=== PATIENT | male | born 1945 | race Caucasian/White ===

== ENCOUNTER → 2020-07-20 15:34 | Outpatient (CLI) | payer OTHER, SELFPAY ==
--- NOTE | 2020-07-20 15:37 | CT_ITS ---
STUDY: CT SCAN LOWER EXTREMITY LEFT REASON FOR EXAM: Male, 74 years old. VARUS DEFORMITY RADIATION DOSAGE (If Supplied By Facility): CTDIvol = ( 18.76 ) mGy, DLP = ( 1106.18 ) mGycm. Individualized dose optimization techniques were used for this CT.? TECHNIQUE: Multiple axial tomographic images of the left lower extremity were obtained without intravenous contrast administration. Axial and coronal reconstruction was obtained as well. COMPARISON: None. FINDINGS: Imaging of the left hip joint was performed. Small spur is seen along the acetabular rim bilaterally. No significant joint space narrowing is seen. Moderate to marked degree of joint space narrowing involving the medial compartment of the knee joint. Small subchondral geodes. Marked degree of joint space narrowing of the femoral patellar joint with large anterior femoral spur formation. There is evidence of a tiny avulsion of the tibial spine. Small joint effusion. Imaging of the ankle joint was performed. The ankle mortise is symmetrical. There is evidence of old avulsion fracture of the medial malleolus. Tiny cyst is seen along the lateral aspect of the distal tibia. CT/Extremity Lower without Contra IMPRESSION: Degenerative changes of the knee joint as described. Electronically Signed: Juma Murillo MD at 15:21 EDT , Service support ,
== END ==
PROVIDERS: Referring Provider Specialist; Visit Provider Specialist
DX: M21.162 Varus deformity, not elsewhere classified, left knee (principal)
CPT/HCPCS: 73700

== ENCOUNTER 2020-08-09 12:38 | Inpatient (IN) | payer OTHER, MEDICARE, SELFPAY ==
--- NOTE | 2020-07-20 23:13 | HP.PCM_ITS ---
History and Physical History and Physical [facility] Patient Name: Kirill Lrary : 1945 From:? NICOLE WALTERS PA-C? DATE OF SURGERY:? 08/09/2020 SCHEDULED PROCEDURE:? left total knee arthroplasty HISTORY OF PRESENT ILLNESS: Preoperative history and physical exam was performed on July 20, 2020.? This is a 74-year-old male who has had ongoing pain for a couple years.? Patient's pain has been constant and sharp.? Pain is increased with going up and down stairs and walking.? Patient has been treated by the [facility] with previous conservat hany measures.? He has difficulty with activities of daily living including shopping and leisure activities such as walking.? Difficulty getting dressed and putting on his socks and shoes.? Patient has tripped/stumbled secondary to his knee pain.? He feels unsafe climbing on stepstools.? Patient has tried conservative measures including for previous corticosteroid injections.? The first injection gave him approximately 1 year relief.? The last injection only gave him 1 month of relief.? He states the pain has been progressively been getting worse.? Pain is increased over the medial aspect of the knee.? His pain is 8/10 at worst.? He has also attempted bracing with no relief in symptoms.? Patient denies previous surgery on the left knee.? He has medical history pertinent for atrial fibrillation, hypertension, sleep apnea, gastroesophageal reflux disease.? He is currently on Coumadin secondary to the atrial fibrillation.? Denies any previous heart surgeries.? He is followed by a porcelain turner and primary [facility].? We are asking for appropriate clearances as well as stopping the Coumadin prior to surgery.? After failing conservative measures and discussing treatment options, the patient does wish to proceed with a left total knee arthroplasty. REVIEW OF SYSTEMS: ROS: Const: Denies change in appetite, fever and weight change. CV: Reports irregular heartbeat, but denies chest pain and heart murmur. Resp: Denies cough, pneumonia, shortness of breath, tuberculosis and wheezing. GI: Denies constipation, diarrhea, heartburn, nausea, rectal itching, bloody stools and vomiting. : Denies incontinence. Musculo: Reports trouble walking, but denies leg swelling, pain and weakness. Skin: Denies Raynaud's, history of shingles and tattoo. Neuro: Denies ambulatory dysfunction, dizziness, numbness/tingling and tremor. Psych: Denies anxiety, insomnia and stress. Markus/Lymph: Denies anemia, bleeding/bruising tendency and past transfusion. Reviewed, no changes. PAST MEDICAL HISTORY: Advance Care Plan: Other Directive, POA Effective Date: 06/26/2020 PMH: Medical Problems: Arthritis, Hard of Hearing, Hepatitis, Sleep Apnea, GERD, High Blood Pressure, atrial fibrillation, vitamin D deficiency, Hypercholesterolemia, Vertigo Accidents: None Surgical Hx: None Anesthesia Complications: None Assistive Devices: Glasses, Contacts, Hearing Aid Reviewed, no changes. SOCIAL HISTORY: SH: Marital: .Occupation: Retired.Work Status: Retired.Hand Dominance: Right-handed. Personal Habits:? Cigarette Use: Former Cigarette Smoker.Smokeless Tobacco: Never Used Smokeless Tobacco.E-Cigarette Use: Never used.Alcohol: Weekly use.Drug Use: Denies Use.Enjoy Exercising: Never Exercises. Reviewed, no changes. VITALS: Ht: 69 Wt: 235lb Wt k.596 BMI: 34.7 BP: 124/70 Pulse: 68 Resp: 20 T: 97.3 T: 36.3C ALLERGIES: No Known Drug Allergy? MEDICATIONS: Warfarin Sodium 5 mg 1 by mouth every day, Loratadine 10 mg 1 by mouth every day, Atorvastatin Calcium 40 mg 1 by mouth every day, Diltiazem HCL 120 mg 1po qday, Pantoprazole Sodium 20 mg 1 by mouth every day, Docusate Sodium 100 mg 2po bid, Losartan Potassium 100 mg 1 by mouth every day, Hydrochlorothiazide 12.5 mg 1po qday, Echinacea? 2po qday, [place] 3 1000 mg 1 by mouth every day, Glucosamine Chondroitin 500 Complex 500 Comp 2 by mouth twice a day, [place] 80 mg once a day, Flaxseed Oil 1000 mg 1po qday, Potassium 99 mg 1po qday, Iron 325 (65 Fe) MG 1po qday, Vitamin D3 25 mcg (1000 Ut) 2po qday PRE-OP EXAM:? General appearance:NORMAL? ? ? Other: Eyes: Conjunctivae and lids: NORMAL? Pupils: ERR Ears, Nose, Mouth, and Throat: NORMAL? Other: Inspection of lips, teeth and gums: NORMAL? ?Other: Neck: Examination of neck: no masses noted. Respiratory: Assessment of respiratory effort: NORMAL? ?Other: ?Auscultation of lungs: clear to auscultation no wheezes, rhonchi or rales. Cardiovascular:? Auscultation of heart: regular rate and rhythm, no murmurs, gallops or rubs. Exam of carotid arteries: NORMAL? ?Other: Gastrointestinal:? Exam of abdomen: soft, nontender, nondistended bowel sounds present. PHYSICAL EXAMINATION: Patient does walk with an antalgic gait.? Left knee is cool to touch without erythema or signs of infection.? He has tenderness to palpation along the medial joint line.? Patient has varus deformity with near fixed deformity on exam.? Range of motion: Lacks 10 of full extension to 110 flexion of the left knee.? Patient has significant laxity with soft endpoint on anterior drawer exam.? Sensation intact to light touch. IMAGING STUDIES: Outside x-rays show varus deformity with medial joint space narrowing, subchondral sclerosis, osteophyte formation consistent with grade 4 severe tricompartmental osteoarthritis.? Bony erosions of the medial compartment.? No lytic or blastic lesions. IMPRESSION: 1.? Severe left knee osteoarthritis 2.? Hypertension 3.? Atrial fibrillation currently on Coumadin 4.? Sleep apnea 5.? Gastroesophageal reflux disease 6.? Hypercholesterolemia 7.? Vertigo 8.? Vitamin D deficiency PLAN: I did discuss and review with the patient all treatment options including surgical versus nonsurgical options.? Patient does wish to proceed with the above-stated procedure.? Potential risks, benefits, and complications of the procedure were discussed in detail including but not limited to , infection, nerve and blood vessel damage, persistent pain, numbness, tingling, p aresthesias, blood clot, pulmonary embolism, and requirement for possible further surgery.? The patient expressed full understanding and has no further questions for the doctor.? Patient does agree to proceed with the above-stated procedure and has signed the surgery consent form. We discussed the current risks associated with COVID 19.? This does include the risk of exposure while in the hospital.? Patient was reassured local hospitals have low infection rates and are taking all necessary precautions to avoid exposure to patients.? In addition, we discussed strategies that can be used to help limit exposure including those that limit the patient's time in the hospital.? Also using strategies to limit the patient's need for continued inpatient services after being discharged from the hospital.? Patient was notified that we will need to comply with any screening or testing the hospital wishes to perform or that surgery may be delayed for any positive results. This dictation was created using voice recognition software. Phonetic and/or grammatical errors may exist. ___? I have re-examined the patient.? There are no clinical changes since date of exam. ___? See progress notes for changes. ___? Dictated on admission Date: ? ? ?Time: Signature:
[2020-08-09] VITALS (9 sets, daily range): BP systolic 140–159; BP diastolic 61–74; PULSE 65–92; RESP 14–100; TEMP 36.2–36.7; O2SAT 94–100; BMI 32.4
--- NOTE | 2020-08-09 | KNEE_PTH ---
PATIENT: TRISTA DAVIS LOC: [facility] U#:[id number] AGE/SX: 74/M ROOM: [facility] RE08/10/[address]: Dr. Luke Lacey MD : 1945 BED: 1 DIS: 08/11/2020 SPEC #: [id number] RECD: 08/09/20 14:39 STATUS: STARR WHITEBakari #: [id number] ELOY: 08/09/20 00:[address]: Luke Lacey DEPT: SURGICAL PATHOLOGY RECD BY: Jeevan Khalil ENTERED: 08/10/20 07:29 SP TYPE: TOTAL KNEE OTHR DR: [facility] Tissues: Knee, NOS Procedures: Decalcification bone/plaque Surgery Specimen Level IV HEADER OPERATION: ERAS, total knee replacement robotic arm assist PRE-OP DIAGNOSIS: Severe left knee osteoarthritis TISSUE SUBMITTED: Left knee bone and tissue MICROSCOPIC DIAGNOSIS Bone and soft tissue, left knee, total knee replacement/resection: Pieces of bone with degenerative osteoarthritic changes. ZEN:elina 08/16/2020 MICROSCOPIC DESCRIPTION Slides are reviewed. GROSS DESCRIPTION Received is one container designated bone and soft tissue left knee. The specimen consists of multiple fragments of nunez-yellow bone measuring in aggregate 12 x 11 x 3 cm. Soft tissue is not identified. A number of bony fragments contain articular surfaces consistent with tibial plateau and femoral condyle and displaying prominent osteophyte formation, eburnation, and bone erosion. Healthcare Administration Internship sections are submitted in two cassettes after decalcification. / ZEN:elina 08/10/20 TC:5 CPT: 69888, 25712
[2020-08-09 10:18] LABS: Magnesium 2.5 mg/dL (1.6-2.6)
[2020-08-09] MEDS: Acetaminophen 500 MG Tablet 1000 MG PO ×2 (10:21→20:55)
[2020-08-09] MEDS: Gabapentin 600 MG Tablet PO (10:21)
[2020-08-09] MEDS: Lactated Ringers 1,000 ML 999 ML IV ×2 (10:22→13:00)
[2020-08-09 10:29] LABS: International Normalized Ratio 1.2; Prothrombin Time (Protime)PT. 14.2 SECONDS (11.7-14.9)
[2020-08-09 11:36] LABS: INR Fingerstick 2.4
[2020-08-09 12:16] LABS: Bedside Glucose 94 mg/dL (70-110)
[2020-08-09] MEDS: Cefazolin 2 GM in 0.9% Normal Saline 100 ML IV (12:32)
[2020-08-09] MEDS: dexAMETHasone 10 MG/ML Vial IV (13:16)
--- NOTE | 2020-08-09 13:57 | OP.PCM_ITS ---
Report of Operation Date of Procedure: 08/09/20 Pre-Operative Diagnosis: Left knee primary osteoarthritis Post-Operative Diagnosis: Left knee primary osteoarthritis Surgery/Procedure Performed:: Left knee minimally invasive robotic assisted total knee replacement Description of Surgical Findings:: Stable knee with good patella tracking Surgeon: Luke Lacey pleating machine operator: Trey Bertrand Type of Anesthesia: Spinal Special Medications: 2 g Ancef, 1 g TXA at incision, 1 g TXA closure, 10 mg Decadron, joint cocktail (5 mg Duramorph, 30 mL of 0.5% Ropivicaine, 1000 units of epinephrine, 30 mg of Toradol) Specimen's removed: Bony cuts Estimated Blood Loss (mL): 150 Fluids Replaced: 1200 mL crystalloid Description of Procedure: Implants used: 1. Tala size 6 triathlon cruciate retaining distal femoral press-fit component 2. Tala size 7 press-fit tritanium tibial baseplate 3. Cameron X3 11 mm CS polyethylene 4. Tala X3 35 mm asymmetric patella Brief history operative indications: 74-year-old male with history of left knee osteoarthritis with radiographic findings with loss of joint space, osteophyte formation and subchondral sclerosis. Failed conservative measures as mentioned in the H&P. Discussion of total knee arthroplasty as well as risk and benefits were discussed the patient including but not limited to blood loss, DVTs, PEs, neurovascular damage, general risk of anesthesia including loss of life, and stiffness or instability were discussed with patient. Patient demonstrated understanding and was able to sign informed consent. Procedure: On the date of procedure patient's left lower extremity was marked in the preoperative area. The patient was then taken back to the operating room where the patient was placed on the table in the supine position. All bony prominences were identified a well-padded. Anesthesia assumed control of the C-spine and airway and remained controlled throughout the remainder of the procedure. A tourniquet was placed on the left upper thigh and the leg was prepped in a sterile fashion. The surgeon then scrubbed at this time .Upon reentering the room left lower extremity was draped in a standard orthopedic fashion. A timeout was then called and everyone agreed upon the side, the site, the procedure to be performed, patient's identity and antibiotics given. Esmarch bandage was used to exsanguinate the extremity and the tourniquet was placed up to 250 mmHg with the knee in flexion. A midline skin incision was made and sharp dissection was taken down through skin subcutaneous tissue and fat. The standard medial parapatellar incision was made and the patella was subluxed laterally. An Appropriate deep MCL release was done and the fat pad was resected. Our attention was then directed to the patella. The patella was everted and a flat resection was made. The knee was then flexed up in 2 femoral pins were placed inside the incision and 2 tibial pins were placed outside the incision in the medial tibia bicortically. Once this was completed the 2 checkpoints in the femur and tibia were placed. Knee was then flexed up and the bony landmarks were registered. Once this was completed knee was taken through range of motion and manually stressed allowing us to a plan for an appropriate tibial cut. The robotic arm was brought into the field sterilely and checkpoint and saw were registered. Based on the patient's deformity the tibial cut was made 3 degrees varus. At this time the tensioner was then placed in the joint and ligament tension was checked at 90 degrees and full extension. Based on the patient's ligamentous tension appropriate adjustments were made to the operative plan and ligament releases were done. Once we were happy with our operative plan with balanced flexion and extension gaps our attention was directed to the femur. The robot was brought into the field sterilely and registered. Posterior condylar cuts, anterior chamfer cuts and anterior cuts were appropriately made for a size 6 femur. When these were completed the saws were switched out in the distal femoral and posterior chamfer cuts were made. Protecting the soft tissue throughout this time. A size 7 tibial base plate was selected. the knee was flexed to 90 degrees and the soft tissues and posterior osteophytes were removed from the joint. 40 cc of the periarticular injection was injected into the posterior medial corner of the joint. The appropriate trials were then placed on the femur and tibia. A trial polyethylene was trialed to ensure proper balancing and stability of the knee. The appropriate tibial internal rotation was then marked with a bovie. Our attention was then directed to the patella. The lug holes were drilled and the patella trial was placed. Patellar tracking was checked and deemed appropriate. Once we were happy lug holes were drilled for the femur and trial components were removed. the tibia was subluxed and pinned into place and the keel was punched and drilled appropriately. Final components were verified and opened, and cement was mixed in a vacuum. [employer] Simplex cement was used. The wound was copiously irrigated with normal saline. When the cement was ready the components were then impacted into place starting with the tibia, femur and finally cementing the patella. The trial poly component was placed and the knee was placed in full extension. All excess cement was removed in the process. Once the cement had cured the tracking, alignment and balance were verified and a size 11 mm CS polyethylene component was placed. Once the final components were placed a 3-minute dilute Betadine lavage was performed followed by an Irrisept lavage was performed and the wound was copiously irrigated with normal saline solution and the periarticular injection was given. The wound was closed in a layer strauss fashion using #1 vicryl interrupted sutures for the arthrotomy, 2-0 interrupted Vicryl suture for the subcuticular layer and eryn for final skin closure. A sterile compressive dr essing was then placed. The patient was then awakened from anesthesia, transferred to the rsparta and transferred to the PACU for recovery. Post op plan DVT ppx: Resume Coumadin tomorrow, thigh high compression stockings Follow up: in office in 2 weeks for wound check PT: to start POD #0 at hospital, outpatient PT should be arranged. My physician human resources assistant manager was a vital part of this case. He was important in appropriate retraction during the case, and protection of soft tissues during bony cuts. His intimate knowledge of the case and my steps aided in safe and expedient completion of the procedure as well as appropriate position of the leg during the case. He was also vital in assisting with closure under my direct supervision. Due to the complexity of this case robotic arm was used to assist in the surgery to improve accuracy and clinical outcomes. Complications No intraoperative complications Admit VTE Documentation VTE Present on Admission: No VTE Mechan Device Prophylaxis: SCD's and Thigh High GABRIELA Hose VTE Pharm Prophylaxis ordered?: Yes
--- NOTE | 2020-08-09 15:08 | RAD_ITS ---
STUDY: X-RAY - LEFT KNEE REASON FOR EXAM: Male, 74 years old. post op -- AP and Lateral xray of operative knee in PACU TECHNIQUE: 2 view(s) of the knee. COMPARISON: None. FINDINGS: Normal visualized distal femur. Normal visualized proximal tibia and fibula. Normal proximal tibiofibular articulation. Status post recent total knee arthroplasty with skin eryn and subcutaneous emphysema.. The soft tissue structures are unremarkable. RAD/Knee 1 or 2 Views IMPRESSION: Status post recent total knee arthroplasty. Electronically Signed: Pito Rodriguez MD at 15:28 EDT Tel , Service support ,
[2020-08-09] MEDS: Lactated Ringers 1,000 ML 125 ML IV (15:27)
[2020-08-09] MEDS: Ensure Surgery 237 ML LIQUID PO (17:24)
[2020-08-09] MEDS: oxyCODONE 5 MG Tablet PO (19:06)
[2020-08-09] MEDS: Cefazolin 1 GM/50 ML BAG IV (20:49)
[2020-08-09] MEDS: Senna/Docusate Sodium 1 Tablet 2 TABLET PO (20:55)
[2020-08-09] MEDS: Pantoprazole Sodium 20 MG Tablet PO (20:56)
[2020-08-09] MEDS: Atorvastatin Calcium 40 MG Tablet PO (20:56)
[2020-08-10 00:03] VITALS: BP 140/57; PULSE 83; RESP 18; TEMP 36.7; O2SAT 94
[2020-08-10 02:21] VITALS: BP 131/49; PULSE 80; RESP 18; TEMP 36.6; O2SAT 95
[2020-08-10] MEDS: Cefazolin 1 GM/50 ML BAG IV (05:26)
[2020-08-10] MEDS: oxyCODONE 5 MG Tablet PO ×3 (05:31→08:25)
[2020-08-10] MEDS: Acetaminophen 500 MG Tablet 1000 MG PO ×3 (05:32→21:26)
[2020-08-10 06:37] LABS: Hematocrit 30.4 % (40-54); Hemoglobin 10.2 g/dL (13.0-16.5); Mean Corp Hgb Conc 33.6 g/dL (32-36); Mean Corpuscular Hgb 30.9 pg (27.0-32.0); Mean Corpuscular Volume 92.1 fL (80-94); Mean Platelet Vol. 10.1 fl (6.2-12.0); Platelet Count 195 K/mm3 (150-450); RBC Distribution Width CV 12.6 % (11.6-14.6); RBC Distribution Width SD 42.3 fl (35.1-43.9); White Blood Count 12.3 K/mm3 (4.4-11.0)
[2020-08-10 07:07] LABS: Anion Gap 5 (5-15); BUN 19 mg/dL (7-18); BUN/Creat Ratio 21.8 RATIO (10-20); Calcium,Total 8.1 mg/dL (8.5-10.1); Chloride 106 mmol/L (98-107); Creatinine, Serum 0.87 mg/dL (0.70-1.30); EST Glomerular Filtration Rate 91 mL/min (>60); Est Glom Filt Rate - Afr Amer 110 mL/min (>60); Estimated Creatinine Clearance 81.76 ml/min; Glucose 142 mg/dL (74-106); Potassium 3.8 mmol/L (3.5-5.1); Sodium Level 138 mmol/L (136-145)
--- NOTE | 2020-08-10 07:26 | PN.ORTHO_ITS ---
Subjective Subjective The patient was sitting in bed upon examination. Patient denies any chest pain, shortness of breath, dizziness, lightheadedness, nausea or vomiting, or calf pain. Pain is controlled on medications. No adverse overnight events. Patient is yet to have physical therapy today. Patient is very concerned with going home as he lives home alone and he is afraid that he cannot take care of himself. Case management will be involved today with appropriate placement and discharge planning. Will need assessment from physical therapy/Occupational Therapy. Objective Data Objective Data Vital Signs: Vital Signs Temp Pulse Resp BP Pulse Ox 97.8 F 80 18 131/49 H 95 08/10/20 02:21 08/10/20 02:21 08/10/20 02:21 08/10/20 02:21 08/10/20 02:21 Oxygen Flow Rate (L/min) 1 Oxygen Delivery Method Nasal Cannula Weight: 108.5 kg Body Mass Index (BMI) 32.4 Intake & Output: Intake and Output for Last 24 Hours 08/08/20 08/09/20 08/10/20 23:59 23:59 23:59 Intake Total 2386.5 / 2586.5 1850 / 1850 Output Total 600 / 600 Balance 2386.5 / 1986.5 1250 / 1250 Lab / Micro Data Result Diagrams: 08/10/20 06:24 08/10/20 06:24 Labs: Laboratory Results - last 24 hr 08/09/20 08/09/20 08/09/20 09:53 09:54 10:00 WBC RBC Hgb Hct MCV MCH MCHC RDW Std Deviation RDW Coeff of Dalia Plt Count MPV POC PT 27.0 H PT INR 2.4 Sodium Potassium Chloride Carbon Dioxide Anion Gap BUN Creatinine Estim Creat Clear Calc Est GFR (MDRD) Af Amer Est GFR (MDRD) Non-Af BUN/Creatinine Ratio Glucose Calcium Magnesium 2.5 POC Glucose 94 08/09/20 08/10/20 08/10/20 10:00 06:24 06:24 WBC 12.3 H RBC 3.30 L Hgb 10.2 L Hct 30.4 L MCV 92.1 MCH 30.9 MCHC 33.6 RDW Std Deviation 42.3 RDW Coeff of Dalia 12.6 Plt Count 195 MPV 10.1 POC PT PT 14.2 INR 1.2 Sodium 138 Potassium 3.8 Chloride 106 Carbon Dioxide 27.0 Anion Gap 5 BUN 19 H Creatinine 0.87 Estim Creat Clear Calc 81.76 Est GFR (MDRD) Af Amer 110 Est GFR (MDRD) Non-Af 91 BUN/Creatinine Ratio 21.8 H Glucose 142 H Calcium 8.1 L Magnesium POC Glucose Micro: Microbiology 08/08/20 11:20 Interface Orders SARS-CoV-2 Antigen (Rapid) - Final Radiography Diagnostic Testing: Radiology Impression Knee X-Ray 08/09/20 15:08 IMPRESSION: Status post recent total knee arthroplasty. Electronically Signed: Pito Rodriguez MD at 15:28 EDT Tel , Service support , Physical Exam Narrative Vital signs stable and afebrile. Patient is able to plantarflex and dorsiflex actively. Sensation is intact to light touch to saphenous, sural, superficial and deep peroneal, and tibial distribution. Distal pin site dressing is completely saturated. The main dressing has a small area of drainage over the middle one third. Minimal drainage over the proximal pin site dressing Negative Homans bilaterally, negative signs and symptoms of DVT. Const alert, oriented x3 and no apparent distress Assessment & Plan Assessment/Plan (1) History of total left knee replacement: PLAN: 1. S/P left total knee arthroplasty POD #1 2. Continue Pain Medications: Tylenol and oxycodone 3. DVT Prophylaxis: Patient has been placed back on his Coumadin which is managed by cardiology. Has underlying atrial fibrillation. Patient denies any chest pain, shortness of breath, calf pain. 4. PT/OT: Weightbearing as tolerated with walker. Will need assessment of patient for appropriate discharge planning 5. H & H: 10.2/30.4, asymptomatic. Postoperative anemia secondary to acute blood loss from surgery without any intra operative complications. 6. Reactive leukocytosis: Currently 12.3, afebrile. Patient did receive Decadron intraoperatively 7. Encouraged Incentive Spirometry 8. Drainage: We will continue to monitor drainage from patient's dressings. We will change the distal pin site dressing. 9. Disposition: Patient will need assessment from physical therapy and Oc cupational Therapy. Patient does live home alone and he is concerned with being able to take care of himself. He had very difficult time sleeping overnight. Case management will be involved. Once we have had physical therapy and assessment we will then be able to assess for appropriate and safe discharge planning. We will also continue to monitor the drainage from the incision. Patient may require an additional stay tonight. I have reviewed the [place] Automated Rx Reporting System (OARRS) report for this patient for refill pattern and other prescriber involvement as part of the appropriate surveillance for the provision of acute and chronic controlled medications. The report was requested and reviewed on the date of this entry and was considered in the prescribing process.
[2020-08-10] MEDS: Ferrous Sulfate 325 MG Tablet PO (08:01)
[2020-08-10] MEDS: Ensure Surgery 237 ML LIQUID PO ×3 (08:01→17:49)
[2020-08-10 08:21] VITALS: BP 156/74; PULSE 80; RESP 18; TEMP 36.5; O2SAT 95
[2020-08-10] MEDS: Ondansetron 4 MG/2 ML Vial IV (08:25)
[2020-08-10] MEDS: Pantoprazole Sodium 20 MG Tablet PO ×2 (08:26→21:25)
[2020-08-10] MEDS: Famotidine 20 MG Tablet PO (08:26)
[2020-08-10] MEDS: Cholecalciferol (VIT D3) 25 MCG TABLET (1,000 UNITS) 50 MCG PO (08:26)
[2020-08-10] MEDS: 0.9% Saline Lock 10 ML Syringe IV (08:26)
[2020-08-10] MEDS: Loratadine 10 MG Tablet PO (08:26)
[2020-08-10] MEDS: dilTIAZem CD 120 MG Capsule PO (08:26)
[2020-08-10] MEDS: hydroCHLOROthiazide 12.5mg 12.5 MG PO (08:26)
[2020-08-10] MEDS: Meclizine HCl 25 MG Tablet PO (08:26)
[2020-08-10] MEDS: Losartan Potassium 100 MG Tablet PO (08:26)
[2020-08-10] MEDS: Senna/Docusate Sodium 1 Tablet 2 TABLET PO ×2 (08:27→21:25)
[2020-08-10 08:47] VITALS: O2SAT 97
--- NOTE | 2020-08-10 09:35 | CASEMGMT ---
Addendum entered by Emily Gay 08/10/20 10:35: Giuseppe did state as well if pt's surgery was outsourced through the [facility], the [facility] still wouldn't pay for SNF. Addendum entered by Emily Gay 08/10/20 09:46: JUS received call from Gi[facility]pe at the [place] stating pt is not service connected, [facility] wouldn't pay for SNF. If pt needs SNF, pt will need to go to SNF under Medicare. Original Note: Social Work Note Pt may need SNF, would like a SNF that is covered by his [facility] benefits. JUS placed a call to Giuseppe LUU at [facility] and left message asking how much pt is service connected through the [place]. It pt wants SNF, pt could also admit to SNF under Medicare Part A. Emily Gay ASSOCIATE SALES MANAGER, REHABILITATION SERVICES AIDE
--- NOTE | 2020-08-10 10:00 | CASEMGMT ---
Social Work Note JUS and RN CM in to speak with pt regarding discharge plans. Pt states he would only go to a SNF if the [place] will cover it. JUS explained that this worker did call [facility] SW and per JUS, pt [place] not service connected so the [place]F. SW explained that pt could go to a SNF under his Medicare Part A but this hospitalization would need to be billed under Medicare. Pt states he is not having this hospitalization billed under Medicare and he will not go to a SNF under his Medicare either. Pt states he will just go home then. RN CM encouraged pt to start calling Family/Friends to see who can check in with pt when pt goes home. JUS updated PA. PA states plan will be for pt to go home tomorrow. JUS updated RN and asked RN to update pt. Emily Gay PROJECT FINANCIAL ANALYST, PROSTHETIC TECHNICIAN
--- NOTE | 2020-08-10 10:15 | CASEMGMT ---
SHIRA MCGHEE Face to Face with patient for initial transition planning/care coordination assessment. SHIRA MCGHEE introduced self and role at [facility]. Patient lying in bed, alert and oriented. Patient willing to participate in assessment and is able to answer all questions appropriately. Care providers, pharmacy, and demographics verified. Patient wishes to discharge to SNF if covered by [place], per patient [place] not service connected and [place] cover [place]F. Patient is setup for outpatient therapy at [facility] starting Friday. SHIRA MCGHEE and JUS discussed asking family to check in or stay with patient for a few days. Patient to make calls to friends and family. Patient states he has no further needs or concerns at this time. CM to follow for discharge planning needs that may arise. PCP: Maryann Ahmadi NP [place] Specialists: ewelina Lacey Pharmacy: Zach ANTUNEZ [facility] Insurance: [facility] Prescription Benefit: yes Living Will/HPOA: yes Daughter Natividad PINA: ex , daughter Living Arrangements: Patient lives alone in a mobile home with 4 steps and railing x1 to enter. Patient states he was independent at home prior to surgery. Transportation: ex DME/HHC: Patient states he has raised toilet, cane, and walker at home. Patient denies previous HHC or SNF. Patient is setup with [facility] for outpatient therpay starting Friday. Disposition Plan: Patient to discharge home with outpatient therapy and follow-up plans in place. Emily REEVES, RN, CM
[2020-08-10 14:30] VITALS: BP 149/60; PULSE 74; RESP 18; TEMP 36.8; O2SAT 97
[2020-08-10 19:48] VITALS: BP 137/51; PULSE 76; RESP 18; TEMP 36.6; O2SAT 95
[2020-08-10] MEDS: MELATONIN 3 MG TABLET PO (21:25)
[2020-08-10] MEDS: Atorvastatin Calcium 40 MG Tablet PO (21:25)
[2020-08-11 02:00] VITALS: BP 145/58; PULSE 63; RESP 18; TEMP 36.7; O2SAT 98
[2020-08-11] MEDS: oxyCODONE 5 MG Tablet PO ×2 (02:31→12:38)
[2020-08-11 04:46] LABS: Hematocrit 28.7 % (40-54); Hemoglobin 9.6 g/dL (13.0-16.5); Mean Corp Hgb Conc 33.4 g/dL (32-36); Mean Corpuscular Hgb 31.3 pg (27.0-32.0); Mean Corpuscular Volume 93.5 fL (80-94); Mean Platelet Vol. 10.3 fl (6.2-12.0); Platelet Count 178 K/mm3 (150-450); RBC Distribution Width CV 13.1 % (11.6-14.6); RBC Distribution Width SD 44.6 fl (35.1-43.9); Red Blood Count 3.07 M/mm3 (4.6-6.2); White Blood Count 7.8 K/mm3 (4.4-11.0)
[2020-08-11] MEDS: Acetaminophen 500 MG Tablet 1000 MG PO ×2 (05:15→14:19)
--- NOTE | 2020-08-11 06:44 | PCM.PN.ORT ---
Subjective Subjective The patient was sitting in bed upon examination. Patient denies any chest pain, shortness of breath, dizziness, lightheadedness, nausea or vomiting, or calf pain. Pain is controlled on medications. No adverse overnight events. Patient reports pain when he is up and walking. He states to me that when he takes the medications the pain is significantly improved. Patient was not able to go to senior care facility through the [place]. patient did not want to put the senior care facility through Medicare. He states he is able to go home and he wants to proceed with outpatient physical therapy. Objective Data Objective Data Vital Signs: Vital Signs Temp Pulse Resp BP Pulse Ox 98.0 F 63 18 145/58 H 98 08/11/20 02:00 08/11/20 02:00 08/11/20 02:00 08/11/20 02:00 08/11/20 02:00 Oxygen Flow Rate (L/min) 1 Oxygen Delivery Method Room Air Weight: 108.5 kg Body Mass Index (BMI) 32.4 Intake & Output: Intake and Output for Last 24 Hours 08/09/20 08/10/20 08/11/20 23:59 23:59 23:59 Intake Total 2386.5 / 2586.5 1850 / 1850 Output Total 975 / 975 300 / 300 Balance 2386.5 / 1986.5 875 / 875 -300 / -300 Lab / Micro Data Result Diagrams: 08/11/20 04:25 08/10/20 06:24 Labs: Laboratory Results - last 24 hr 08/10/20 08/11/20 06:24 04:25 WBC 7.8 RBC 3.07 L Hgb 9.6 L Hct 28.7 L MCV 93.5 MCH 31.3 MCHC 33.4 RDW Std Deviation 44.6 H RDW Coeff of Dalia 13.1 Plt Count 178 MPV 10.3 Sodium 138 Potassium 3.8 Chloride 106 Carbon Dioxide 27.0 Anion Gap 5 BUN 19 H Creatinine 0.87 Estim Creat Clear Calc 81.76 Est GFR (MDRD) Af Amer 110 Est GFR (MDRD) Non-Af 91 BUN/Creatinine Ratio 21.8 H Glucose 142 H Calcium 8.1 L Micro: Microbiology 08/08/20 11:20 Interface Orders SARS-CoV-2 Antigen (Rapid) - Final Physical Exam Narrative Vital signs stable and afebrile. Patient is able to plantarflex and dorsiflex actively. Sensation is intact to light touch to saphenous, sural, superficial and deep peroneal, and tibial distribution. Over the distal pin site patient did not have an occlusive dressing. The tape was removed and a occlusive dressing was placed. The main dressing is with stable discharge over the middle one third. Minimal discharge which is stable over the proximal pin site. Negative Homans bilaterally, negative signs and symptoms of DVT. When moving the knee and leg patient is in no apparent distress Const alert, oriented x3 and no apparent distress Assessment & Plan Assessment/Plan (1) History of total left knee replacement: PLAN: 1. S/P left total knee arthroplasty POD #2 2. Continue Pain Medications: Tylenol and oxycodone 3. DVT Prophylaxis: Patient has been placed back on his Coumadin which is managed by cardiology. Has underlying atrial fibrillation. Patient denies any chest pain, shortness of breath, calf pain. 4. PT/OT: Weightbearing as tolerated with walker. Will need assessment of patient for appropriate discharge planning 5. H & H: 9.6/28.7, asymptomatic. Postoperative anemia secondary to acute blood loss from surgery without any intra operative complications. 6. Reactive leukocytosis: Resolved and currently 7.8, afebrile. Patient did receive Decadron intraoperatively 7. Encouraged Incentive Spirometry 8. Drainage: Drainage has been stable. However there was no occlusive dressing over the distal pin site. A new occlusive dressing was placed today by myself. There was no active drainage upon removal of the old dressing. 9. Disposition: At this time patient reports to me that when he is taking the medication his pain is controlled. Pain is primarily when he is up ambulating. Patient does not wish to go to senior care facility under his Medicare. He does wish to go home at this time. I would like him to get formal physical therapy today in the hospital. Plan will be for discharge later this afternoon after therapy. Prescriptions will be E scribed to [facility]. Patient will follow-up per postop instructions. He has outpatient physical therapy scheduled for Friday. He has a contact [facility] with any complications upon discharge. I have reviewed the [place] Automated Rx Reporting System (OARRS) report for this patient for refill pattern and other prescriber involvement as part of the appropriate surveillance for the provision of acute and chronic controlled medications. The report was requested and reviewed on the date of this entry and was considered in the prescribing process.
--- NOTE | 2020-08-11 06:49 | DCINST_ITS ---
Discharge Instructions Diet Discharge Diet: No restrictions Activity Discharge Activity: May Not Drive and May not drive while taking narcotic pain medications. May shower in (days): 1 (Please turn dressing away from water. Okay to get wet as long as dressing is intact to skin.) Ice area for (Minutes): 20 (Every 1-2 hours while awake[address] place barrier between the skin and ice pack.) Weight Bearing Status: Weight bearing as tolerated Keep extremity elevated above heart level: Operative Extremity Dressing / Incision Call your doctor if your incision/area has: Continuous Slow Oozing, Sudden Increased Bleeding, Increased Pain/ Swelling, Increased Redness and Foul Smelling Discharge Call your doctor if you observe: Fever of 101 or Higher, Coldness, Increased Pain, Numbness or Tingling, Change in Color, Shortness of breath, Chest pain, Calf discomfort and Uncontrolled pain Remove Dressing in: 3 days (Okay to remove dressing on August 14, 2020) Additional Dressing/Incision Instructions:: Follow [facility] Post-op Instructions. Once postoperative dressing has been removed only use gentle soap and water over the incision. Do not use any ointments, Neosporin, salves, alcohol pads over the incision for 6 weeks postoperatively. Do not submerge underwater for 6 weeks postoperatively. Continue with GABRIELA hose/elastic stockings for 2 weeks postoperatively. May remove at nighttime but needs to be placed back on the leg during the day. Do NOT use alcohol with narcotic pain medication. Do NOT make important decisions while taking narcotic medication. If you have problems with taking your medication (rash, itching, nausea, etc.) call the office at once. Follow Up Care Test Results: Test results from this visit will be discussed in further detail at your follow-up appointment, if applicable. Discharge Plan Admission Admit Date/Time: 08/10/20 15:20 Attending Provider: Luke Lacey Primary Care Provider: [facility] Discharge Orders/Prescriptions Prescriptions: New acetaminophen 500 mg Tablet 1,000 mg PO Q8 14 Days Qty: 84 RF: 0 oxycodone 5 mg Tablet 5 - 10 mg PO Q4H PRN PRN (Reason: Pain Score 4-10) 5 Days Qty: 60 RF: 0 Continued Albuterol Inhaler 1 puff OTHER PRN PRN (Reason: sob) RF: 0 atorvastatin 40 mg Tablet 40 mg PO QHS RF: 0 warfarin 7.5 mg Tablet 7.5 mg PO ROSE RF: 0 pantoprazole 20 mg Tablet,Delayed Release (Dr/Ec) 20 mg PO BID RF: 0 flaxseed oil 1,000 mg Capsule 1,000 mg PO DAILY RF: 0 potassium 99 mg Tablet 99 mg PO DAILY RF: 0 meclizine 25 mg Tablet 25 mg PO DAILY PRN (Reason: Vertigo) RF: 0 warfarin 5 mg Tablet 5 mg PO MOTUWETHFRSA RF: 0 diltiazem HCl 120 mg Capsule,Extended Release 24hr 120 mg PO DAILY RF: 0 Zn-pyg zrci-vhtyvt-kuy palmet Capsule 1 cap PO DAILY RF: 0 multivitamin Capsule 2 cap PO DAILY RF: 0 docusate sodium 100 mg Tablet 200 mg PO BID RF: 0 echinacea 125 mg Capsule 250 mg PO DAILY RF: 0 losartan-hydrochlorothiazide 100-12.5 mg Tablet 1 tab PO DAILY RF: 0 ferrous sulfate 27 mg iron Tablet 27 mg PO DAILY RF: 0 cholecalciferol (vitamin D3) [Vitamin D3] 50 mcg (2,000 unit) Capsule 50 mcg PO DAILY RF: 0 omega 7-kjn-yyx-fish oil [Fish Oil] 1,000 mg (120 mg-180 mg) Capsule 1 cap PO DAILY RF: 0 loratadine 10 mg Capsule 10 mg PO DAILY RF: 0 Glucosamine Chondroitin 550-30-1 mg Capsule 1 cap PO DAILY RF: 0 Referrals / Follow Up: [facility] [Primary Care Provider] - Trey Bertrand PA-C [PHYSICIAN NONDESTRUCTIVE TESTER] - 08/23/20 10:15 am Physical,Therapy [Other] - 08/14/20 12:30 pm ([facility]) Disposition Disposition (needs filled in before D/C Order can be placed): Home, self care
[2020-08-11] MEDS: Meclizine HCl 25 MG Tablet PO (07:06)
[2020-08-11 07:09] VITALS: BP 110/63; PULSE 58; RESP 18; TEMP 37; O2SAT 94
[2020-08-11 08:08] VITALS: O2SAT 99
[2020-08-11 08:20] VITALS: BP 122/56; PULSE 75; RESP 18; TEMP 36.7; O2SAT 99
[2020-08-11] MEDS: Famotidine 20 MG Tablet PO (09:32)
[2020-08-11] MEDS: hydroCHLOROthiazide 12.5mg 12.5 MG PO (09:32)
[2020-08-11] MEDS: Losartan Potassium 100 MG Tablet PO (09:32)
[2020-08-11] MEDS: Loratadine 10 MG Tablet PO (09:32)
[2020-08-11] MEDS: dilTIAZem CD 120 MG Capsule PO (09:32)
[2020-08-11] MEDS: Senna/Docusate Sodium 1 Tablet 2 TABLET PO (09:32)
[2020-08-11] MEDS: Pantoprazole Sodium 20 MG Tablet PO (09:32)
[2020-08-11] MEDS: Cholecalciferol (VIT D3) 25 MCG TABLET (1,000 UNITS) 50 MCG PO (09:33)
[2020-08-11] MEDS: Ferrous Sulfate 325 MG Tablet PO (09:36)
--- NOTE | 2020-08-11 10:38 | PHA.DC.MC ---
Pharmacy Service has performed discharge medication reconciliation and counseling for this patient. 1. ACETAMINOPHEN 1000MG PO Q8H X 2 WEEKS 2. OXYCODONE 5-10MG PO Q4H PRN PAIN 4-10 The patient's discharge medication list was reviewed for discrepancies and discrepancies were resolved. Home Medications Albuterol Inhaler 1 puff OTHER PRN PRN 07/27/20 Glucosamine Chondroitin 1 cap PO DAILY 07/27/20 Zn-pyg [id number] palmet 1 cap PO DAILY 07/27/20 atorvastatin 40 mg PO QHS 07/27/20 cholecalciferol (vitamin D3) [Vitamin D3] 50 mcg PO DAILY 07/27/20 diltiazem HCl 120 mg PO DAILY 07/27/20 docusate sodium 200 mg PO BID 07/27/20 echinacea 250 mg PO DAILY 07/27/20 ferrous sulfate 27 mg PO DAILY 07/27/20 flaxseed oil 1,000 mg PO DAILY 07/27/20 loratadine 10 mg PO DAILY 07/27/20 losartan-hydrochlorothiazide 1 tab PO DAILY 07/27/20 meclizine 25 mg PO DAILY PRN 07/27/20 multivitamin 2 cap PO DAILY 07/27/20 omega 0-etr-tbk-fish oil [Fish Oil] 1 cap PO DAILY 07/27/20 pantoprazole 20 mg PO BID 07/27/20 potassium 99 mg PO DAILY 07/27/20 warfarin 5 mg PO MOTUWETHFRSA 07/27/20 warfarin 7.5 mg PO ROSE 07/27/20 acetaminophen 1,000 mg PO Q8 14 Days #84 tab 08/11/20 oxycodone 5 - 10 mg PO Q4H PRN PRN 5 Days #60 tab 08/11/20 The patient was counseled on the following discharge medications and changes in medications for homegoing were reviewed. The Reason for Use, instructions for use, and potential side effects were reviewed for all new medications. The patient's questions regarding all of their medications were answered. The patient was able to verbally demonstrate an understanding of their discharge medications.
[2020-08-11 15:06] VITALS: BP 152/70; PULSE 77; RESP 18; TEMP 36.8; O2SAT 100
== END 2020-08-11 16:00 | disposition home or self-care (01) | DRG 470 ==
LOC: SDC 15:20 → MS3 15:20
PROVIDERS: Anesthesiology; Admitting Provider Specialist; Referring Provider Specialist; Visit Provider Specialist
PROC: 0SRD0JZ Replacement of Left Knee Joint with Synthetic Substitute, Open Approach (ICD-10-PCS; CPT 27447; principal; 2020-08-09 12:00)
DX: M17.12 Unilateral primary osteoarthritis, left knee (principal); I48.91 Unspecified atrial fibrillation; I10 Essential (primary) hypertension; K21.9 Gastro-esophageal reflux disease without esophagitis; Z79.01 Long term (current) use of anticoagulants; Z87.891 Personal history of nicotine dependence; G47.30 Sleep apnea, unspecified; E78.00 Pure hypercholesterolemia, unspecified; R42 Dizziness and giddiness; E55.9 Vitamin D deficiency, unspecified; Z79.899 Other long term (current) drug therapy; D72.829 Elevated white blood cell count, unspecified
CPT/HCPCS: 36415; 36416; 73560; 80048; 82962; 83735; 85027; 85610; 87426; 88305; 88311; 94762; 97110; 97116; 97162; 97166; 97530; 97535; 99251; C1776; C9803; J7120; A4216; G0463; J2405